=== PATIENT | female | born 1985 | race Asian ===

== ENCOUNTER 2020-10-25 06:20 | Inpatient (IN) | payer BC ==
[~2020-10-25] VITALS: Ht 157.5 cm; Wt 58.6 kg
[2020-10-25] VITALS (42 sets, daily range): BP systolic 97–145; BP diastolic 49–84; PULSE 69–144; TEMP 97.7–99.1
--- NOTE | 2020-10-25 06:25 | NUR ---
Admits to L&D for scheduled induction of labor, accompanied by spouse. Ambulatory, steady gait noted. 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
[2020-10-25] MEDS ORDERED: PRENATAL PLUS PO (07:15)
--- NOTE | 2020-10-25 07:15 | NUR ---
Upon initial SVE, note moderate amount of clear fluid. This blog writer asks patient if she has been leaking fluid, states she felt a gush around 0430, but thought she might have peed herself. Initial SVE , bloody show present.
[2020-10-25] MEDS ORDERED: NATURAL IRON65 MG (07:16)
[2020-10-25 07:40] LABS: BASO # 0.1 (0.0-0.2); BASO % 0.7 % (0.0-2.0); EOS # 0.1 (0.0-0.7); EOS % 1.1 % (0-4.0); GRAN # 5.2 (1.4-6.5); HEMATOCRIT 39.2 % (37.0-47.0); LYMPH # 1.6 (1.2-3.4); LYMPH % 21.5 % (20.0-51.0); MEAN CELL VOLUME 91 fl (80.0-100.0); MEAN CORPUSCULAR HEMOGLOBIN 30 pg (27.0-31.0); MEAN CORPUSCULAR HGB CONC 33 g/dl (33.0-37.0); MEAN PLATELET VOLUME 11.9 fl (7.4-10.4); MONO # 0.6 (0.1-0.6); MONO % 7.2 % (1.7-9.3); PLATELET COUNT 169 K/mm3 (130-400); RED BLOOD COUNT 4.31 M/mm3 (4.10-5.30); REDCELL DISTRIBUTION WIDTH-CV 17.7 % (11.5-14.5)
--- NOTE | 2020-10-25 07:58 | NUR ---
Up to bathroom. LR bolus begun with patient request for epidural. Mesh underwear, tatum pad provided, as well as hospital socks at this time.
--- NOTE | 2020-10-25 07:58 | NUR ---
Note patient breathing through contractions.
--- NOTE | 2020-10-25 08:00 | NUR ---
Requests epidural @ this time, attempt to contact Jori Tate CRNA, no answer. Voicemail left. Will await return phone call.
--- NOTE | 2020-10-25 08:37 | NUR ---
0837: Up to BR to empty bladder prior to epidural placement, as noted Jori Tate CRNA in house.
--- NOTE | 2020-10-25 08:41 | NUR ---
0841: Sitting upright at side of bed in preparation for epidural placement. Jori Tate CRNA, in room. Time-out completed prior to start of procedure. 0853: Test dose administered by COUNTERSINKER. No adverse reactions noted. Tolerates procedure well. Positioned supine with hip roll under right side following epidural.
--- NOTE | 2020-10-25 09:30 | NUR ---
Note subtle late decelerations while patient in right lateral. Note patient in right lateral, as attempting to even out epidural coverage, as noted patient still breathing through contractions with c/o pain on right lower abdomen. Placed in right lateral by Jori Tate CRNA, epidural bolus given. See anesthesia record for detail.
--- NOTE | 2020-10-25 09:44 | NUR ---
Repositioned to left lateral, after continued repetetive late decels. 0950: C/O feeling lightheaded, nauseated. Note hypotensive. 0952: 10 mg Ephedrine IVP administered, LR bolus in progress with explanation to patient. Verbalizes understanding.
--- NOTE | 2020-10-25 10:27 | NUR ---
Pit decreased to 10mU/min per telephone order. Note has reviewed strip from home. Updated to SVE /+1.
--- NOTE | 2020-10-25 10:37 | NUR ---
Pit off. O2 on @ 10L/min per simple face mask. LR bolus in progress.
--- NOTE | 2020-10-25 10:55 | NUR ---
Allowed to take O2 off, as noted FHT have fully recovered. Pit restart @ 2mU/min with explanation to patient per 's verbal order.
--- NOTE | 2020-10-25 11:10 | NUR ---
in for SVE, verbalizes head is in OA position, SVE /+1.
--- NOTE | 2020-10-25 12:10 | NUR ---
here for repeat SVE. 1215: First push attempt with instruction. Dr. Johnson pushes with patient through a few contractions. Reports she will remain in-house while patient continues with pushing efforts, but steps out of room @ 1220.
--- NOTE | 2020-10-25 12:15 | NUR ---
Ivory catheter removed per verbal order prior to pushing efforts.
--- NOTE | 2020-10-25 12:40 | NUR ---
Began using tug of war method for pushing efforts. Patient reports she feels much more powerful in this position. This copywriter supports one leg, while patient spouse supports the other. Squat bar used for resistance on sheet used for tug of war.
--- NOTE | 2020-10-25 14:08 | NUR ---
in-house, has reviewed strip, aware of repetetive late decelerations, will be in to evaluate.
--- NOTE | 2020-10-25 14:10 | NUR ---
Straight cathed, as noted nearly 2 hours since Ivory catheter removed. 150 mL urine return.
--- NOTE | 2020-10-25 14:15 | NUR ---
here for evaluation, continues pushing with patient from this point through delivery.
--- NOTE | 2020-10-25 15:00 | NUR ---
Bed broken down for delivery per verbal order. Charge nurse, nursery nurse requested to come to room in preparation for delivery at this time. Stool at bedside in preparation for possible shoulder dystocia.
--- NOTE | 2020-10-25 15:18 | NUR ---
1518: Spontaneous vaginal delivery of head by . Note compound presentation with hands up by neck, along with loop of umbilical cord. No nuchal noted, however. 1518: Spontaneous vaginal delivery of male by @ this time. Large amount of terminal meconium noted, transitional stool in appearance. placed on maternal abdomen. Tree, nursery nurse, RN, at bedside drying and stimulating fetus on maternal abdomen. Umbilical cord doubly clamped and father of baby instructed to cut cord. 1522: Spontaneous vaginal delivery of placenta by . Pit bolus begun immediately following. works to repair 2nd degree perineal laceration with 2-[address]-1 x2 suture packets. Note two large gushes of bleeding during repair. Moderate amount of small clots expressed, Fundus firms with massage, but boggy in between. Verbal order obtained for Methergine 0.2 mg IM injection. 1524: Red Leelee placed by , estimated urine return less than 100 mL. 1525: Methergine 0.2 mg IM administered by this documentation writer to left anterolateral thigh with explanation to patient. 1526: completes repair by closing skin with 4-0 Vicryl on SH. Verbal order received to continue po Methergine for 24 hours. explains this to patient, verbalizes understanding.
--- NOTE | 2020-10-25 17:30 | NUR ---
Patient bottom still numb post epidural. Unable to ambulate at this time. Tatum care provided. Mesh underwear, clean tatum pad, fresh ice pack applied. Epidural catheter removed @ this time.
--- NOTE | 2020-10-25 19:10 | NUR ---
1910- PT ASSISTED UP TO BATHROOM. WALKING WITHOUT DIFFICULTY OR ASSISTANCE. PT ABLE TO VOID 300ML WITHOUT DIFFICULTY. PT INSTRUCTED ON PERICARE. CLEAN PAD AND PANTIES PROVIDED. NORMAL LOCHIA DISCUSSED AND PT VERBALIZES UNDERSTANDING. 1919- PT AMBULATES TO ROOM 214. BELONGINGS AND BABY WITH PT. PT ORIENTED TO CALL LIGHTS AND ROOM. NO FURTHER NEEDS AT THIS TIME.
[2020-10-26 01:15] VITALS: BP 100/66; PULSE 86; TEMP 98.2
[2020-10-26 05:00] VITALS: BP 87/60; PULSE 95; TEMP 97.3
[2020-10-26 07:23] VITALS: BP 112/65; PULSE 78; TEMP 97.9
[2020-10-26] MEDS ORDERED: MOTRIN 800800 MG/TAB PO (08:31)
[2020-10-26 10:43] VITALS: BP 112/64; PULSE 82; TEMP 98.3
[2020-10-26 14:45] VITALS: BP 106/55; PULSE 86; TEMP 98.3
== END 2020-10-26 16:42 | disposition home or self-care (01) | DRG 807 ==
LOC: LDR 06:20 → OB 06:20
PROVIDERS: ADMIT Obstetrics & Gynecology
PROC: 10E0XZZ Delivery of Products of Conception, External Approach (ICD-10-PCS; principal; 2020-10-25)
PROC: 0KQM0ZZ Repair Perineum Muscle, Open Approach (ICD-10-PCS; 2020-10-25)
PROC: 3E033VJ Introduction of Other Hormone into Peripheral Vein, Percutaneous Approach (ICD-10-PCS; 2020-10-25)
DX: O99.02 Anemia complicating childbirth (principal); Z37.0 Single live birth; D64.9 Anemia, unspecified; O70.1 Second degree perineal laceration during delivery; O77.0 Labor and delivery complicated by meconium in amniotic fluid; O75.89 Other specified complications of labor and delivery; Z3A.39 39 weeks gestation of pregnancy
CPT/HCPCS: J2210; J2590; J7120

== ENCOUNTER → 2020-11-05 | Outpatient (CLI) | payer BC ==
[~2020-11-05] MED LIST: MOTRIN 800800 MG/TAB PO; NATURAL IRON65 MG; PRENATAL PLUS PO
--- NOTE | 2020-11-05 15:31 | NUR ---
Pt, David Agarwal and her spouse, Yanira Muse, present for outpatient consult with 11 day old baby boy, Dhruv Muse. She is concerned about her milk supply and Kenyetta getting enough to eat. Dhruv was born on [birth year] and weighed 7#8.3oz (3410 gms). Discharge weight was 7#7.2oz on 10/26/20. Dhruv was readmitted on 10/30/20 for hyperbilirubinemia. His weight this day was 6#9oz. He was supplemented 30ml formula after , at each feeding while in the hosptial. Discharge weight on 10/31/20 was 6#13oz. Today Dhruv weighs 6#14oz, for a loss of 10 oz from weight, well below the expectation of return to weight by 7-10 days of life. His rate of gain after ~5 days of life is expected to be 0.5-1oz daily. He has gained 1oz over the last 5 days. Pt reports Dhruv is now being fed q 2 hours which is an increase in frequency because she is fearful he is not getting enough to eat. About half of his feedings he does not nurse on the second breast. Pt will pump if he does not nurse the second breast and collects ~15-30ml. She has been using a nipple shield because of inverted nipples. She also reports Dhruv recieves one 2oz bottle of formula in the noc to allow her rest with the q 2 hours feeding schedule. Pumping is irregular, based on if he nurses both breasts. Dhruv reportedly has 10+ voids and 4 yellow stools daily. LC observes pt's nipples are partially inverted, but with pressure behind it, it everts and Pt is able to latch Dhruv directly to the breast. After nursing bilaterally Dhruv has a weight gain of 1.4oz (40 gms). NAEEM notes Dhruv has a thick sublingual frenulum and the tip of his tongue presents in a U shape with crying. His tongue is noted to be across the gum line and around the breast tissue when is is nuring. Also he has a high anterior palate that may limit the amount of compression of the nipple against the palate for milk transfer. Desired intake for Dhruv at his age and weight is ~20oz per day. Pt advised to supplement 1oz EBM or formula per feeding, q 2.5 hours. If [facility] does not nurse well, follow with pumping. Supplement can be by Supplemental Nursing System or bottle. Discussion had on causes of low milk supply, and supply/demand theory to increase supply. POC: Breastfeed q 2.5 hours, follow with 1oz EBM or formula each feeding. Pump as needed after poor effort. F/U: By telephone or email with this on November 07. With Dr. Garrido in one week for a weight check. Questions invited and answered.
== END ==
LOC: LAC 12:47
DX: Z39.1 Encounter for care and examination of lactating mother (principal); Z71.89 Other specified counseling